=== PATIENT | female | born 1990 | race Caucasian/White ===

== ENCOUNTER 2017-06-19 22:53 | Emergency (ER) | payer OTHER ==
[2017-06-19 22:59] VITALS: BP 136/75; PULSE 89; RESP 20; TEMP 97.9
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
== END 2017-06-19 23:30 | disposition home or self-care (01) ==
LOC: EC 22:53
DX: T74.11XA Adult physical abuse, confirmed, initial encounter (principal); R51 Headache; R20.2 Paresthesia of skin; Z53.29 Procedure and treatment not carried out because of patient's decision for other reasons; Y04.2XXA Assault by strike against or bumped into by another person, initial encounter; Y92.239 Unspecified place in hospital as the place of occurrence of the external cause; Y99.0 Civilian activity done for income or pay
CPT/HCPCS: 99283

== ENCOUNTER 2017-07-22 07:28 | Emergency (ER) | payer SELFPAY ==
[2017-07-22 08:04] LABS: Glucose,Whole Blood 120 mg/dL (75-99)
--- NOTE | 2017-07-22 08:04 | ED ---
General Adult HPI - General Chief complaint: Upper Respiratory Infection Stated complaint: Elevated BP Time Seen by Provider: 07/22/17 07:30 Source: patient, RN notes reviewed Mode of arrival: ambulatory Limitations: no limitations - History of Present Illness Initial comments: This is a 26-year-old female presents emergency Department complaining that she became lightheaded and tachycardic. Patient states she had worked all night and not eaten since 2 AM. Patient states she does have a history of hypoglycemia. Patient states she then sat down and drank 4 apple juices. Patient states she was not nauseous. Patient denies any abdominal pain. Patient states she doesn't know why all of a sudden she became lightheaded but then shortly thereafter she can feel her heart racing. Patient states currently she is feeling much better just a little shaky. Patient states this is very reminiscent of her hypoglycemic episode she's had in the past. Patient denies any fever chills or cough. Patient denies headache patient denies numbness weakness. Patient denies chest pain. Patient denies any symptoms throughout the night until this episode occurred. - Related Data Home Medications Medication Instructions Recorded Confirmed Alesse 1 tab PO DAILY 07/22/17 07/22/17 LORazepam [Ativan] 1 mg PO DAILY PRN 07/22/17 07/22/17 traMADol-ACETAMINOP 37.5-325MG 2 tab PO Q6H PRN 07/22/17 07/22/17 [Ultracet] Allergies Allergy/AdvReac Type Severity Reaction Status Date / Time No Known Allergies Allergy Verified 07/22/17 08:26 Review of Systems ROS Statement: Those systems with pertinent positive or pertinent negative responses have been documented in the HPI. ROS Other: All systems not noted in ROS Statement are negative. Past Medical History Past Medical History: No Reported History History of Any Multi-Drug Resistant Organisms: None Reported Past Surgical History: No Surgical Hx Reported Past Psychological History: No Psychological Hx Reported Smoking Status: Never smoker Past Alcohol Use History: None Reported Past Drug Use History: None Reported General Exam - General Exam Comments Initial Comments: GENERAL: Patient is well-developed and well-nourished. Patient is nontoxic and well- hydrated and is in mild distress. ENT: Neck is soft and supple. No significant lymphadenopathy is noted. Oropharynx is clear. Moist mucous membranes. Neck has full range of motion without eliciting any pain. EYES: The sclera were anicteric and conjunctiva were pink and moist. Extraocular movements were intact and pupils were equal round and reactive to light. Eyelids were unremarkable. PULMONARY: Unlabored respirations. Good breath sounds bilaterally. No audible rales rhonchi or wheezing was noted. CARDIOVASCULAR: There is a regular rate and rhythm without any murmurs gallops or rubs. ABDOMEN: Soft and nontender with normal bowel sounds. No palpable organomegaly was noted. There is no palpable pulsatile mass. SKIN: Skin is clear with no lesions or rashes and otherwise unremarkable. NEUROLOGIC: Patient is alert and oriented x3. Cranial nerves II through XII are grossly intact. Motor and sensory are also intact. Normal speech, volume and content. Symmetrical smile. MUSCULOSKELETAL: Normal extremities with adequate strength and full range of motion. LYMPHATICS: No significant lymphadenopathy is noted PSYCHIATRIC: Normal psychiatric evaluation. Limitations: no limitations Course Vital Signs 07/22/17 07/22/17 07:30 08:33 Temperature 99.8 F H Pulse Rate 99 Respiratory 18 Rate Blood Pressure 147/93 Blood Pressure 142/73 [Right Arm Sitting] Blood Pressure 160/94 [Right Arm Standing] Blood Pressure 137/64 [Right Arm Supine] O2 Sat by Pulse 100 Oximetry Medical Decision Making - Medical Decision Making EKG shows normal sinus rhythm at 87 bpm AK interval is 132 QRS 94 QT interval 376 QTC is 452. EKG shows no ST segment elevation or depression or T wave abnormalities are noted. - Lab Data Lab Results 07/22/17 07/22/17 07/22/17 Range/Units 07:53 08:05 08:47 POC Glucose (mg/dL) 120 H 97 (75-99) mg/dL POC Glu [employer] ID Daisy UriasCale Influenza Type A RNA Not Detected (Not Detectd) Influenza Type B (PCR) Not Detected (Not Detectd) Disposition Clinical Impression: Vasovagal near-syncope Disposition: HOME SELF-CARE Condition: Good Instructions: Hypotension (ED) Referrals: Nonstaff,Physician [Primary Care Provider] - 1-2 days Time of Disposition: 08:53
[2017-07-22 08:17] VITALS: PULSE 99; RESP 18
[2017-07-22 08:35] VITALS: BP 137/64
[2017-07-22 08:49] LABS: Glucose,Whole Blood 97 mg/dL (75-99)
[2017-07-22 09:29] VITALS: TEMP 98.5
== END 2017-07-22 09:00 | disposition home or self-care (01) ==
LOC: EC 07:28
DX: R55 Syncope and collapse (principal); Z79.3 Long term (current) use of hormonal contraceptives
CPT/HCPCS: 36415; 87502; 93005; 99283